=== PATIENT | male | born 1995 ===

== ENCOUNTER 2024-03-04 11:51 | Outpatient (CLI) | payer OTHER ==
--- NOTE | 2024-03-04 17:58 | Ultrasound Report ---
PROCEDURE: Ultrasound of the bladder INDICATIONS: 28-year-old male with incomplete voiding TECHNIQUE: Ultrasound of the kidneys and bladder was obtained. COMPARISON: None FINDINGS: Bladder: Pre-void bladder volume is 884 mL. Post-void residual is 97 mL. Pre-void images demonstra te no intraluminal masses or stones. Miscellaneous: Prostate measures 3.1 x 2.9 x 3.7 cm IMPRESSION: 97 cc postvoid residual in the bladder Reviewed by: Morgan Zaidi MD on 03/04/2024 4:57 PM AKDT Approved by: Morgan Zaidi MD on 03/04/2024 4:57 PM AKDT Station ID: [id number]
== END 2024-03-04 11:52 | disposition home or self-care (01) ==
LOC: DI 11:51
PROVIDERS: ATTEND Nurse Practitioner Acute Care
DX: F52.21 Male erectile disorder (principal); R39.14 Feeling of incomplete bladder emptying

== ENCOUNTER 2024-03-11 08:00 | Outpatient (CLI) | payer OTHER | END 2024-03-11 23:59 | disposition home or self-care (01) | LOC: LAB.WCP 08:00 | PROVIDERS: ATTEND Urology | DX: R39.14 Feeling of incomplete bladder emptying (principal) | CPT/HCPCS: 87086 ==

== ENCOUNTER 2024-03-16 08:02 | Outpatient (CLI) | payer OTHER ==
[2024-03-16 15:01] LABS: CALCIUM 9.8 mg/dL (8.5-10.3); CREATININE 1.1 mg/dL (0.6-1.3); POTASSIUM 4.2 mmol/L (3.5-4.5)
== END 2024-03-16 08:03 | disposition home or self-care (01) ==
LOC: LAB.S 08:02
PROVIDERS: ATTEND Urology
DX: F52.21 Male erectile disorder (principal); R39.14 Feeling of incomplete bladder emptying
CPT/HCPCS: 36415; 80048; 82670; 84403; 87086

== ENCOUNTER 2024-04-11 07:35 | Outpatient (CLI) | payer OTHER ==
[2024-04-11 15:55] LABS: THYROID STIMULATING HORMONE 3.37 uIU/mL (0.34-5.60)
[2024-04-11 16:00] LABS: PROLACTIN 11.64 ng/mL
== END 2024-04-11 07:36 | disposition home or self-care (01) ==
LOC: LAB.S 07:35
PROVIDERS: ATTEND Urology
DX: F52.21 Male erectile disorder (principal)
CPT/HCPCS: 36415; 83002; 84146; 84403; 84443

== ENCOUNTER 2024-05-10 07:16 | Outpatient (CLI) | payer OTHER | END 2024-05-10 07:17 | disposition home or self-care (01) | LOC: LAB.S 07:16 | PROVIDERS: ATTEND Urology | DX: E23.0 Hypopituitarism (principal) | CPT/HCPCS: 36415; 82670; 84403 ==

== ENCOUNTER 2024-06-01 07:33 | Outpatient (CLI) | payer OTHER | END 2024-06-01 07:34 | disposition home or self-care (01) | LOC: LAB.S 07:33 | PROVIDERS: ATTEND Urology | DX: E23.0 Hypopituitarism (principal) | CPT/HCPCS: 36415; 82670; 84403 ==